=== PATIENT | female | born 1990 | race American Indian/Alaskan Native ===

== ENCOUNTER 2024-11-10 08:50 | Emergency (ER) | payer OTHER ==
[~2024-11-10] VITALS: Ht 170.2 cm; Wt 129.0 kg
[2024-11-10 08:54] VITALS: O2SAT 100
[2024-11-10] MEDS: ACETAMINOPHEN WITH CODEINE 300/30MG TABLET PO ONE (09:28)
[2024-11-10] MEDS ORDERED: TOPUD PO (10:43)
[2024-11-10 10:58] VITALS: BP 134/82; PULSE 95; RESP 16; TEMP 37.1; O2SAT 100
== END 2024-11-10 11:09 | disposition home or self-care (01) ==
LOC: ER 08:50
DX: M25.511 Pain in right shoulder (principal); M25.512 Pain in left shoulder; E11.9 Type 2 diabetes mellitus without complications; V43.52XA Car driver injured in collision with other type car in traffic accident, initial encounter; Y93.89 Activity, other specified; Y92.89 Other specified places as the place of occurrence of the external cause; Y99.8 Other external cause status
CPT/HCPCS: 82962; 73030; 99284; Z7610; A4565; A4606